=== PATIENT | male | born 1995 | race Caucasian/White ===

== ENCOUNTER 2017-09-18 08:11 | Outpatient (CLI) | payer OTHER ==
--- NOTE | 2017-09-18 11:22 | MRI ---
MRI RIGHT KNEE WITHOUT CONTRAST: Date: 09/18/17 HISTORY: M25.561, knee pain. COMPARISON: None. FINDINGS: Medial Meniscus: Intact. Lateral Meniscus: Intact. 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 Posterior cru ciate ligament is intact, as well as the LCL and MCL. Extensor Mechanism: Quadriceps tendon, patella, and patellar tendon are intact. Cartilage: Patellofemoral compartment: Intact. Medial compartment: Intact. Lateral compartment: Intact. Muscles: Muscle signal and bulk are normal. Bones: There is a focal area of edema within the medial submeniscal tibial rim. This does not extend to the articular surface. IMPRESSION: Focal area of submeniscal medial tibial rim edema without a fracture line appreciated. This may be fr om a contusion or stress related. No other internal derangement of the knee. POS: [facility]
== END 2017-09-18 08:12 | disposition home or self-care (01) ==
LOC: MRI 08:11
PROVIDERS: ATTEND Orthopaedic Surgery
DX: M25.561 Pain in right knee (principal); R60.0 Localized edema